=== PATIENT | female | born 1995 | race Caucasian/White ===

== ENCOUNTER 2020-02-14 19:20 | Emergency (ER) | payer BC ==
[2020-02-14] MEDS ORDERED: Lactated Ringers 1,000 ML IV ONE (20:25)
[2020-02-14] MEDS ORDERED: Ondansetron 4 MG/2 ML SDV IVPUSH ONE ×2 (20:26→21:37)
--- NOTE | 2020-02-14 20:32 | EDM.PDOC ---
ED HPI GENERAL MEDICAL PROBLEM - General Chief Complaint: Gastrointestinal Problem Stated Complaint: VOMITING/POSS DEHYDRATED Time Seen by Provider: 02/14/20 19:54 Source of Information: Reports: Patient History Limitations: Reports: No Limitations - History of Present Illness INITIAL COMMENTS - FREE TEXT/NARRATIVE: Ms. Nuñez is a very pleasant 24-year-old woman with a past medical history significant for depression and laparoscopy-confirmed endometriosis, who now presents to the ED stating that she developed nausea and vomiting yesterday morning, 02/13/2020. She states that she had a single episode of non- bloody watery diarrhea last night, but none since. She has not had a fever. She denies having abdominal pain. She denies lightheadedness when she stands. The patient states that a coworker has similar symptoms, however, the patient and the coworker do not share food, or even a common eating place. The patient does not recall eating any bad tasting or smelling food recently. No recent antibiotics. She states that she was in [place] in early December, but no travel since. No prior similar symptoms. Other than the nausea, vomiting, and single episode of diarrhea, the patient denies recent chills, sore throat, ear pain, nasal or sinus congestion, cough, dyspnea, chest pain, palpitations, constipation, urinary symptoms, recent weight gain or weight loss, recent bloody bowel movements or black bowel movements, recent joint aches, headaches, or rashes. Here in the ED, the patient is found to be hemodynamically stable, afebrile, saturating 95% on room air. The patient states that she took an [id number] anti-nausea medicine, that only seemed to make her nausea worse. She has not taken any other over-the- counter or home remedies. The patient's PCP is JESUS Garza. Her Machine Overhauler is Dr. Celeste Camara, in [place]. 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 History: Reports: Endometriosis (Laparoscopy-confirmed) Psychiatric History: Reports: Depression - Infectious Disease History Infectious Disease History: Reports: Chicken Pox, Influenza, Measles, Other ( See Below) - Past Surgical History HEENT Surgical History: Reports: Adenoidectomy, Oral Surgery (wisdom teeth extraction), Tonsillectomy Female Surgical History: Reports: Other (See Below) (Exploratory laparoscopy for endometriosis x 1) Social & Family History - Family History Family Medical History: Noncontributory - Tobacco Use Smoking Status *Q: Never Smoker Second Hand Smoke Exposure: No - Alcohol Use Alcohol Use History: Yes Alcohol Use Frequency: Socially - Recreational Drug Use Recreational Drug Use: Yes Drug Use in Last 12 Months: No Recreational Drug Type: Reports: Marijuana/Hashish (last smoked 2017) - Living Situation & Occupation Living situation: Reports: Single, Other (Roomate) 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 ED EXAM, GI/ABD - Physical Exam Exam: See Below Exam Limited By: No Limitations General Appearance: Alert, WD/WN, No Apparent Distress Eyes: Bilateral: Normal Appearance, EOMI Ears: Normal External Exam, Hearing Grossly Normal Nose: Normal Inspection Throat/Mouth: Normal Inspection, Normal Lips, Normal Voice, No Airway Compromise Head: Atraumatic, Normocephalic Neck: Normal Inspection, Full Range of Motion Respiratory/Chest: No Respiratory Distress, Lungs Clear, Normal Breath Sounds, No Accessory Muscle Use Cardiovascular: Normal Peripheral Pulses, Regular Rate, Rhythm, No Edema, No Gallop, No JVD, No Murmur, No Rub GI/Abdominal Exam: Normal Bowel Sounds, Soft, Non-Tender, No Organomegaly, No Distention, No Abnormal Bruit, No Mass (Female) Exam: Deferred Rectal (Female) Exam: Deferred Back Exam: Normal Inspection, Full Range of Motion, NT Extremities: Normal Inspection, Normal Range of Motion, No Pedal Edema, Normal Capillary Refill Neurological: Alert, Oriented, Normal Cognition, No Motor/Sensory Deficits Psychiatric: Normal Affect Skin Exam: Warm, Dry, Intact, Normal Color, No Rash Course - Vital Signs Last Recorded V/S: Last Vital Signs Temp 36.4 C 02/14/20 19:31 Pulse 82 02/14/20 19:31 Resp 16 02/14/20 19:31 BP 133/81 02/14/20 19:31 Pulse Ox 95 02/14/20 19:31 - Orders/Labs/Meds Labs: Laboratory Tests 02/14/20 02/14/20 Range/Units 21:00 21:00 WBC 10.03 (3.98-10.04) K/mm3 RBC 4.79 (3.98-5.22) M/mm3 Hgb 15.2 (11.2-15.7) gm/dl Hct 44.6 (34.1-44.9) % MCV 93.1 (79.4-94.8) fl MCH 31.7 (25.6-32.2) pg MCHC 34.1 (32.2-35.5) g/dl RDW Std Deviation 38.0 (36.4-46.3) fL Plt Count 327 (182-369) K/mm3 MPV 9.5 (9.4-12.3) fl Neutrophils % (Manual) 52 (40-60) % Band Neutrophils % 0 (0-10) % Lymphocytes % (Manual) 37 (20-40) % Atypical Lymphs % 0 % Monocytes % (Manual) 5 (2-10) % Eosinophils % (Manual) 6 H (0.7-5.8) % Basophils % (Manual) 0 L (0.1-1.2) Platelet Estimate Adequate RBC Morph Comment Normal Sodium 147 H (136-145) mEq/L Potassium 3.4 L (3.5-5.1) mEq/L Chloride 108 H (98-107) mEq/L Carbon Dioxide 26 (21-32) mEq/L Anion Gap 16.4 H (5-15) BUN 7 (7-18) mg/dL Creatinine 0.7 (0.55-1.02) mg/dL Est Cr Clr Drug Dosing 118.01 mL/min Estimated GFR (MDRD) > 60 (>60) mL/min BUN/Creatinine Ratio 10.0 L (14-18) Glucose 95 (74-106) mg/dL Calcium 9.2 (8.5-10.1) mg/dL Magnesium 1.9 (1.8-2.4) mg/dl Total Bilirubin 0.5 (0.2-1.0) mg/dL AST 18 (15-37) U/L ALT 33 (14-59) U/L Alkaline Phosphatase 114 (46-116) U/L Total Protein 7.5 (6.4-8.2) g/dl Albumin 3.9 (3.4-5.0) g/dl Globulin 3.6 gm/dL Albumin/Globulin Ratio 1.1 (1-2) Meds: Medications Discontinued Medications Generic Name Dose Route Start Last Admin Trade Name Jonnyq PRN Reason Stop Dose Admin Lactated Ringer's 1,000 mls @ 999 mls/hr 02/14/20 20:25 02/14/20 20:32 Ringers, Lactated IV 02/14/20 21:25 999 mls/hr .BOLUS ONE Administration Metoclopramide HCl 10 mg 02/14/20 22:12 02/14/20 22:20 Reglan IVPUSH 02/14/20 22:13 10 mg ONETIME STA Administration Ondansetron HCl 4 mg 02/14/20 20:26 02/14/20 20:32 Zofran IVPUSH 02/14/20 20:27 4 mg ONETIME ONE Administration Ondansetron HCl 4 mg 02/14/20 21:37 02/14/20 21:47 Zofran IVPUSH 02/14/20 21:38 4 mg ONETIME ONE Administration - Re-Assessments/Exams Free Text/Narrative Re-Assessment/Exam: 02/14/20 20:27 As above, the patient has had nausea and vomiting since yesterday morning, with only one episode of non-bloody watery diarrhea last evening. I have ordered a work-up that includes blood work, to make sure that she has not suffered any significant electrolyte shifts, and in the meantime she will be given IV fluid and IV Zofran. Because she has not had persistent diarrhea, I have not ordered loperamide. 02/14/20 21:38 The patient's CBC is unremarkable. Her CMP is remarkable for a sodium mildly elevated 147, and a potassium slightly depressed at 3.4. Her anion gap is mildly elevated at 16.4, but her bicarbonate is normal at 26. The remainder of her CMP is unremarkable. Her magnesium level is within normal limits at 1.9. Notified by Armida MIRANDA that the patient's IV fluid has finished infusing, but that she is still feeling nauseated. I have ordered additional Zofran. 02/14/20 22:12 The patient states that she is still feeling nauseated. I have ordered 10 mg of IV Reglan, however, I explained to the patient that these antinausea medicines all contribute to QT prolongation, in addition to the venlafaxine that she is on, which can also cause QT prolongation, therefore if the addition of Reglan does not help her nausea, I will not be able to try any additional medications. The patient expressed understanding. 02/14/20 22:41 The patient states that she is feeling much better. I will discharge her home with a prescription for Zofran. She requested a note to be off work until . Departure - Departure Time of Disposition: 22:42 Disposition: Home, Self-Care 01 Condition: Good Clinical Impression: Gastroenteritis - Discharge Information *PRESCRIPTION DRUG MONITORING PROGRAM REVIEWED*: Not Applicable *COPY OF PRESCRIPTION DRUG MONITORING REPORT IN PATIENT CT: Not Applicable Prescriptions: Ondansetron [Zofran ODT] 1 tab PO Q8H PRN #10 tab.dis PRN Reason: Nausea/Vomiting Instructions: Viral Gastroenteritis, Adult, [id number] Referrals: Rosy Xavier PA-C [Primary Care Provider] - Celeste Camara MD [Ordering Only Provider] - Forms: ED Department Discharge, ED Return to Work/School Form Additional Instructions: You were seen in the emergency room for persistent nausea and vomiting and's yesterday morning, 02/13/2020, as well as having a single episode of watery diarrhea last evening. Work-up in the ER included blood work. No significant electrolyte abnormalities were found. You were given IV fluid and 2 different types of antinausea medicines in the ER , with significant improvement in your symptoms. A prescription for the anti-nausea medicine Zofran has been sent to the [facility], located in the [employer] grocery store. You may dissolve 1 tablet of Zofran on your tongue up to every 8 hours, as needed for nausea/vomiting. Stay adequately hydrated. Gatorade or Powerade are best. We recommend that you eat a bland diet, such as oatmeal, rice, or applesauce, for the next couple of days. Chicken noodle soup with saltine crackers is an excellent choice. If you develop diarrhea, we recommend that you take [id number] loperamide (Imodium), as directed on the label. If you develop diarrhea, avoid juice and milk, as these may make diarrhea worse. A note to be off work until , 02/17/2020, has been provided. If any other problems, please do not hesitate to return to the ER. Sepsis Event Note - Evaluation Sepsis Screening Result: No Definite Risk - Focused Exam Vital Signs: Vital Signs Temp Pulse Resp BP Pulse Ox 02/14/20 19:31 36.4 C 82 16 133/81 95 Date Exam was Performed: 02/14/20 Time Exam was Performed: 23:00
[2020-02-14] MEDS ORDERED: Metoclopramide 10 MG/2 ML SDV IVPUSH STA (22:12)
== END 2020-02-14 22:55 | disposition home or self-care (01) ==
LOC: JD.ED 19:20
DX: K52.9 Noninfective gastroenteritis and colitis, unspecified (principal); F32.9 Major depressive disorder, single episode, unspecified; Z79.899 Other long term (current) drug therapy
CPT/HCPCS: 36415; 80053; 83735; 85007; 85027; 96361; 96374; 96375; 96376; 99284-25; J2405; J2765; J7120